=== PATIENT | male | born 2000 | race Caucasian/White ===

== ENCOUNTER 2023-08-25 19:01 | Emergency (ER) | payer OTHER ==
[2023-08-25 19:52] VITALS: TEMP 98.3; BMI 29.9
[2023-08-25 20:02] LABS: INR 0.96 (0.83-1.09)
[2023-08-25 20:05] LABS: ACTIVATED PTT 26.8 SECONDS (25.2-36.5)
[2023-08-25 20:25] LABS: BASO % 0.6 % (0-2.0); EOS % 0.7 % (0-4.5); HEMATOCRIT 45.9 % (35.4-49); HEMOGLOBIN 16.1 GM/dL (11.7-16.9); LYMPH % 21.2 % (8-40); MCH 29.3 pg (25.7-33.7); MCHC 35.1 g/dl (32.0-35.9); MEAN CELL VOLUME 83.6 fl (80-96); MEAN PLT VOLUME 8.3 fl (7.5-11.1); MONO % 6.9 % (3.8-10.2); NEUT % 70.6 % (42.8-82.8); PLATELET COUNT 263 10^3/uL (134-434); RBC 5.49 M/mm3 (4.00-5.60); RDW 13.7 % (11.9-15.9); WHITE BLOOD COUNT 8.6 K/mm3 (4.0-10.0)
[2023-08-25] MEDS: LACTATED RINGERS SOLUTION 1,000 ML/1,000 ML INFUS.BAG IV SCH (20:34)
[2023-08-25 21:09] LABS: POTASSIUM 3.5 mmol/L (3.5-5.1)
[2023-08-25 21:11] LABS: CALCIUM 9.4 mg/dL (8.5-10.1)
[2023-08-25 21:12] LABS: ALBUMIN 4.5 g/dl (3.4-5.0)
[2023-08-25 21:15] LABS: CREATININE 0.8 mg/dL (0.55-1.3)
[2023-08-25 21:17] LABS: BILIRUBIN,TOTAL 0.5 mg/dL (0.2-1)
[2023-08-25 23:59] VITALS: BP 107/64; PULSE 74; RESP 18
== END 2023-08-26 00:28 | disposition home or self-care (01) ==
LOC: JER 19:01
DX: R55 Syncope and collapse (principal); G93.89 Other specified disorders of brain; R10.11 Right upper quadrant pain; R10.13 Epigastric pain; R42 Dizziness and giddiness; R20.2 Paresthesia of skin
CPT/HCPCS: 36415; 70450-TC; 71045-TC-FY; 80053; 82550; 82553; 82962; 83605; 84484; 85025; 85610; 85730; 86850; 86900; 86901; 93005; 93010; 99285-25